=== PATIENT | female | born 1990 | race Caucasian/White ===

== ENCOUNTER 2020-02-04 15:15 | Outpatient (CLI) | payer BC, SELFPAY ==
[2020-02-04 15:43] VITALS: BMI 37.8
[2020-02-04] MEDS: Lactated Ringers 1,000 ML 125 ML IV (16:27)
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
== END 2020-02-04 19:20 | disposition home or self-care (01) ==
PROVIDERS: PCP Family Medicine; Visit Provider Advanced Practice Midwife
DX: O36.8190 Decreased fetal movements, unspecified trimester, not applicable or unspecified (principal); Z3A.36 36 weeks gestation of pregnancy; V89.2XXA Person injured in unspecified motor-vehicle accident, traffic, initial encounter
CPT/HCPCS: 96360; 96361; 59025; 59050; 99218; G0378

== ENCOUNTER 2020-02-12 13:20 | Inpatient (IN) | payer BC, SELFPAY ==
[2020-02-12] VITALS (20 sets, daily range): BP systolic 130–165; BP diastolic 63–97; PULSE 85–122; TEMP 36.2–36.7; O2SAT 93–100; BMI 37.3
--- NOTE | 2020-02-12 14:13 | NURSING ---
Avoids gluten and pork
[2020-02-12] MEDS: 0.9% Saline Lock 10 ML Syringe IV (14:27)
[2020-02-12 14:37] LABS: Absolute Neutrophil Count 7.3 X10^3/uL (2.0-7.7); Basophil# 0.02 X10^3/uL; Basophil% 0.2 % (0-1); Eosinophil# 0.03 X10^3/uL; Eosinophils% 0.3 % (0-5); Hematocrit 33.2 % (37-47); Hemoglobin 11.2 g/dL (12.0-15.0); Lymphocyte % 18.6 % (19-41); Mean Corp Hgb Conc 33.7 g/dL (32-36); Mean Corpuscular Hgb 30.3 pg (27.0-32.0); Mean Corpuscular Volume 89.7 fL (81-99); Mean Platelet Vol. 10.4 fl (6.2-12.0); Monocyte# 0.45 X10^3/uL; Monocyte% 4.6 % (0-10); NRBC Flagged by Analyzer 0.2 % (0-5); Neutrophil % 75.5 % (47-70); Platelet Count 259 K/mm3 (150-450); RBC Distribution Width CV 19.5 % (11.6-14.6); RBC Distribution Width SD 61.1 fl (35.1-43.9); White Blood Count 9.7 K/mm3 (4.4-11.0)
[2020-02-12 15:12] LABS: ALB/GLOB Ratio 0.6 RATIO (0.9-2.4); AST(SGOT) 62 U/L (15-37); Alanine Aminotransfer ALT/SGPT 34 U/L (13-56); Albumin, Serum 2.5 g/dL (3.2-5.0); Alkaline Phosphatase 156 U/L (45-117); Anion Gap 15 (5-15); BUN 5 mg/dL (7-18); BUN/Creat Ratio 7.1 RATIO (10-20); Calcium,Total 9.8 mg/dL (8.5-10.1); Chloride 107 mmol/L (98-107); Creatinine, Serum 0.71 mg/dL (0.55-1.02); EST Glomerular Filtration Rate 102 mL/min (>60); Est Glom Filt Rate - Afr Amer 124 mL/min (>60); Estimated Creatinine Clearance 99.14 ml/min; Glucose 122 mg/dL (74-106); Potassium 3.8 mmol/L (3.5-5.1); Protein, Total 6.5 g/dL (6.4-8.2); Sodium Level 138 mmol/L (136-145); Uric Acid 6.8 mg/dL (2.6-6.0)
[2020-02-12 15:24] LABS: Protein:Creat Ratio 738 mg/g CRE (0-200)
[2020-02-12] MEDS: miSOPROStol 25 MCG TABLET PO ×2 (15:46→20:03)
--- NOTE | 2020-02-12 16:00 | PCM.HP.OB ---
- Problem List (1) Preeclampsia Status: Acute (2) Encounter for induction of labor Status: Acute (3) Obesity affecting Status: Acute (4) Tobacco use during Status: Acute (5) Anemia affecting Status: Acute (6) Depression with anxiety Status: Acute History Date of Admission: 02/12/20 Final KIMBERLI: 02/29/20 Final KIMBERLI Source: [place] <20 weeks Gestational age: 37 Weeks and 5 Days History of this : This is a 29 year-old, G [1], P [0], at 37 weeks 4 days gestational age by ultrasound. Presented to office visit with contractions. Blood pressure elevated to 142/82 and asymptomatic. Denied any headache, scotoma, RUQ abdominal pain or other concerns. Asymptomatic and reflexes normal with no clonus. Decision to admit for induction of labor for gestational HTN rule out preeclampsia. course complicated by obesity, tobacco use, anemia and getting iron infusions. Medical History: Medical History (Last Updated 02/13/20 @ 08:53 by Lacie Aleman CNM) Decreased movement (Acute) O36.8190 36 weeks gestation of (Acute) Z3A.36 Allergies shalonda Allergy (Verified 02/12/20 13:36) Anaphylaxis gluten Adverse Reaction (Verified 02/12/20 13:36) Diarrhea lactose Adverse Reaction (Verified 02/12/20 13:36) Diarrhea Home Medications: Home Medications Folic Acid 0.8 mg PO DAILY 02/04/20 Prenatabs FA 1 tab PO DAILY 02/04/20 Sertraline HCl [Zoloft] 100 mg PO DAILY 02/04/20 Smoking Status: Light Smoker (<10/day) Alcohol: None Substance Use Type: Sleep Aides Number of Fetus(es): 1 NST - FHR Rate Baby A Baseline: 145 Variability:: Moderate Accelerations:: 15 x 15 Decelerations:: None FHR Category:: Category I History Past Pregnancies: Past Pregnancies Delivery Date Name GA/ Weeks Outcome Route Wt Sex Labor Length Anesthesia Delivery Location Provider FOB Labs: Mom's Problem List Problem Status Onset Code Preeclampsia Acute O14.90 Encounter for induction of labor Acute Z34.90 Obesity affecting Acute O99.210 Tobacco use during Acute O99.330 Anemia affecting Acute O99.019 Depression with anxiety Acute F41.8 Gestational hypertension Acute O13.9 37 weeks gestation of Acute Z3A.37 Mom's Labs & Results 02/12/20 02/12/20 02/12/20 14:20 14:20 14:20 WBC 9.7 RBC 3.70 L Hgb 11.2 L Hct 33.2 L MCV 89.7 MCH 30.3 MCHC 33.7 RDW Std Deviation 61.1 H RDW Coeff of Cora 19.5 H Plt Count 259 MPV 10.4 Immature Gran % (Auto) 0.800 Neut % (Auto) 75.5 H Lymph % (Auto) 18.6 L Dunn % (Auto) 4.6 Eos % (Auto) 0.3 Baso % (Auto) 0.2 Absolute Neuts (auto) 7.3 Absolute Lymphs (auto) 1.80 Nucleated RBC % 0.2 Sodium 138 Potassium 3.8 Chloride 107 Carbon Dioxide 16.0 L Anion Gap 15 BUN 5 L Creatinine 0.71 Estim Creat Clear Calc 99.14 Est GFR (MDRD) Af Amer 124 Est GFR (MDRD) Non-Af 102 BUN/Creatinine Ratio 7.1 L Glucose 122 H Uric Acid 6.8 H Calcium 9.8 Total Bilirubin 0.40 AST 62 H ALT 34 Alkaline Phosphatase 156 H Total Protein 6.5 Albumin 2.5 L Globulin 4.0 Albumin/Globulin Ratio 0.6 L U Random Total Protein Urine Creatinine Protein/Creatinin Ratio Blood Type A POSITIVE Antibody Screen NEGATIVE 02/12/20 02/13/20 02/13/20 14:50 05:30 05:30 WBC 8.6 RBC 3.48 L Hgb 11.2 L Hct 31.1 L MCV 89.4 MCH 32.2 H MCHC 36.0 D RDW Std Deviation 63.8 H RDW Coeff of Cora 19.9 H Plt Count 236 MPV 10.2 Immature Gran % (Auto) 0.500 Neut % (Auto) 66.1 Lymph % (Auto) 26.2 Dunn % (Auto) 6.2 Eos % (Auto) 0.9 Baso % (Auto) 0.1 Absolute Neuts (auto) 5.7 Absolute Lymphs (auto) 2.24 Nucleated RBC % 0 Sodium 135 L Potassium 3.5 Chloride 104 Carbon Dioxide 15.0 L Anion Gap 16 H BUN 7 Creatinine 0.54 L Estim Creat Clear Calc 130.35 Est GFR (MDRD) Af Amer 171 Est GFR (MDRD) Non-Af 141 BUN/Creatinine Ratio 13.1 Glucose 101 Uric Acid Calcium 8.4 L Total Bilirubin 0.30 AST 73 H ALT 25 Alkaline Phosphatase 144 H Total Protein 6.2 L Albumin 2.2 L Globulin 4.0 Albumin/Globulin Ratio 0.6 L U Random Total Protein 68.0 H Urine Creatinine 92.20 Protein/Creatinin Ratio 738 H Blood Type Antibody Screen Course Did the patient receive Yes care? Labs Blood Type: A RH: POSITIVE RPR/VDRL/Syphilis Nonreactive Rubella status Immune HbSAg Negative Date Done: 07/15/19 Chlamydia Negative Gonorrhea Negative HIV/AIDS Non-Reactive Group B Strep: Negative Current Obstetrical History Gestational Diabetes No Incompetent Cervix No Infertility No IUGR No Macrosomia No Hypertension/Pre-eclampsia Yes Placenta Previa/Abruption No PTL/PROM No Uterine anomaly No Oligohydramnios No Polyhydramnios No Multiple gestation No Past Medical History Asthma No Diabetes No Hypertension No Heart disease No Mitral valve prolapse No Neurologic/Seizure disorder/ No Migraines Kidney disease No Liver disease No Varicosities No Clotting disorders/Hx of DVT No Thyroid Dysfunction No Other medical diseases No Psychiatric disorders Yes: anxiety Major trauma No Abnormal PAP smear Yes: hx HPV Sleep apnea No Mammogram in the last 2 years No Medications Taken During Reason for taking medication [ Biweekly x 10 doses - currently received approx. 6 Iv iron infusions] doses Social History Marital Status: SINGLE Alleged father Jese Banerjee Hx Smoking Yes Smoking Status Light Smoker (<10/day) Substance Use Type Sleep Aides What date/time did you last melatonin prn for sleep - couple days ago use any of the above? Expected Delivery Method: Spontaneous Vaginal Review of Systems Constitutional: Denies: Chills, Fever, Weight Change Eyes: Denies: Blurred vision, Double vision, Vision Change HEENT: Denies: Head Aches, Sinus Congestion, Sinus Drainage Cardiovascular: Denies: Chest Pain, Palpitations Respiratory: Denies: Cough, Shortness of breath at rest, Sputum production Gastrointestinal: Denies: Abdominal Pain, Nausea, Vomiting Genitourinary: Denies: Dysuria Musculoskeletal: Denies: Joint Pain, Joint Tenderness Skin: Denies: Rash, Wounds Neurological: Denies: Numbness, Tingling, Focal weakness Psychiatric: Denies: Anxiety, Depression, Homicidal Ideations, Suicidal Ideations Hematologic/ Lymphatic: Denies: Easy Bruising, Easy Bleeding Physical Exam Vitals: Vital Signs Temp Pulse BP Pulse Ox 97.0 F L 98 133/78 H 97 02/13/20 09:44 02/13/20 11:01 02/13/20 11:01 02/13/20 09:44 General: Alert, Oriented x3, Cooperative HEENT: Atraumatic, Normocephalic Cardiovascular: Regular rate, Regular Rhythm, No murmurs Lungs: Clear to auscultation, Normal air movement, No rhonchi, No wheeze Abdomen: Bowel Sounds Present, Non Tender - No RUQ tenderness, Gravid Extremities:: No edema Neurological: Deep Tendon Reflexes 2+/4 and Symmetrical. Negative for: Clonus VEGETABLE II FARMWORKER: Normal external genitalia Estimated gestational size: Appropriate for gestational size - 02/03/20 Presentation: Cephalic Cervix Dilation (cm): 0 - Very posterior Station: -3 Effacement (%): 40 Assessment/Plan All Active Problems (Last Updated 02/13/20 @ 08:53 by Lacie Aleman CNM) Preeclampsia (Acute) Encounter for induction of labor (Acute) Obesity affecting (Acute) Tobacco use during (Acute) Anemia affecting (Acute) Depression with anxiety (Acute) Gestational hypertension (Acute) 37 weeks gestation of (Acute) Decreased movement (Acute) 36 weeks gestation of (Acute) This is a 29 year-old, G [1], P [0], at 37 weeks 4 days gestational age. A:Induction of labor for Preeclampsia Category 1 FHT P: 1) Admit to labor and delivery. Routine labs, IV saline lock 2) Cytotec 25mcg PO q4hr. Cervix closed and unable to insert bettencourt catheter. Will attempted once cervical os open. 3) CMP, CBC, uric acid and urine P/C ratio ordered. AST elevated and P/C ratio 738. Diagnosis of preeclampsia without severe features. BP range 140s/80s. No severe range pressures and asymptomatic. If severe range BP will initiate HTN protocol and magnesium. 4) [facility], notified of patient status, diagnosis and plan.
[2020-02-12] MEDS: Acetaminophen 325 MG Tablet PO (23:02)
[2020-02-13] VITALS (39 sets, daily range): BP systolic 120–171; BP diastolic 60–99; PULSE 76–139; TEMP 36.1–36.9; O2SAT 95–100
[2020-02-13] MEDS: miSOPROStol 25 MCG TABLET PO ×2 (00:12→04:22)
[2020-02-13] MEDS: Mag Hydrox/Al Hydrox/Simeth 30 ML UDC PO ×3 (01:20→20:45)
[2020-02-13] MEDS: 0.9% Saline Lock 10 ML Syringe IV (04:21)
--- NOTE | 2020-02-13 05:11 | NURSING ---
this RN agrees with student nurse [facility] charting from this shift.
[2020-02-13 05:38] LABS: Absolute Lymphocyte Count 2.24 X10^3/uL (0.83-4.51); Absolute Neutrophil Count 5.7 X10^3/uL (2.0-7.7); Basophil# 0.01 X10^3/uL; Basophil% 0.1 % (0-1); Eosinophil# 0.08 X10^3/uL; Eosinophils% 0.9 % (0-5); Hematocrit 31.1 % (37-47); Hemoglobin 11.2 g/dL (12.0-15.0); Lymphocyte # 2.24 X10^3/ul (4.0); Lymphocyte % 26.2 % (19-41); Mean Corpuscular Hgb 32.2 pg (27.0-32.0); Mean Corpuscular Volume 89.4 fL (81-99); Mean Platelet Vol. 10.2 fl (6.2-12.0); Monocyte# 0.53 X10^3/uL; Monocyte% 6.2 % (0-10); NRBC Flagged by Analyzer 0 % (0-5); Neutrophil # 5.65 X10^3/uL (2.7-7.7); Neutrophil % 66.1 % (47-70); Platelet Count 236 K/mm3 (150-450); RBC Distribution Width CV 19.9 % (11.6-14.6); RBC Distribution Width SD 63.8 fl (35.1-43.9); Red Blood Count 3.48 M/mm3 (4.2-5.4); White Blood Count 8.6 K/mm3 (4.4-11.0)
[2020-02-13 06:44] LABS: ALB/GLOB Ratio 0.6 RATIO (0.9-2.4); AST(SGOT) 73 U/L (15-37); Alanine Aminotransfer ALT/SGPT 25 U/L (13-56); Albumin, Serum 2.2 g/dL (3.2-5.0); Alkaline Phosphatase 144 U/L (45-117); Anion Gap 16 (5-15); BUN 7 mg/dL (7-18); BUN/Creat Ratio 13.1 RATIO (10-20); Calcium,Total 8.4 mg/dL (8.5-10.1); Chloride 104 mmol/L (98-107); Creatinine, Serum 0.54 mg/dL (0.55-1.02); EST Glomerular Filtration Rate 141 mL/min (>60); Est Glom Filt Rate - Afr Amer 171 mL/min (>60); Estimated Creatinine Clearance 130.35 ml/min; Glucose 101 mg/dL (74-106); Potassium 3.5 mmol/L (3.5-5.1); Protein, Total 6.2 g/dL (6.4-8.2); Sodium Level 135 mmol/L (136-145)
--- NOTE | 2020-02-13 08:44 | PN.OBGYN_ITS ---
Patient Problems: Active and Suspected Problems 37 weeks gestation of (Acute) Gestational hypertension (Acute) Subjective: Patient seen at bedside. Denies any headaches, vision changes or RUQ pain. Stated slept through night. Denies feeling any cramping or contractions. Positive movement. - Physical Exam Vitals/I&O's: Vital Signs Temp Pulse BP Pulse Ox 97.4 F L 86 143/83 H 98 02/13/20 07:31 02/13/20 07:31 02/13/20 07:31 02/13/20 07:31 Weight: 217 lb 6.012 oz Body Mass Index (BMI) 37.3 Intake and Output for Last 24 Hours 02/11/20 02/12/20 02/13/20 23:59 23:59 23:59 Intake Total 400 / 400 100 / 100 Output Total 350 / 350 Balance 400 / 400 -250 / -250 General: Alert, Oriented x3 HEENT: Atraumatic Oral: Moist Mucosa Lungs: Clear to auscultation, Normal air movement Cardiovascular: Regular rate Abdomen: Soft, Non Tender, Gravid Extremities: Capillary Refill Less than 3 Seconds Skin: No rashes Neurological: Cranial nerves II-XII grossly intact Psych/Mental Status: Normal Affect, Appropriate Laboratory Results 02/12/20 14:20: WBC 9.7, RBC 3.70 L, Hgb 11.2 L, Hct 33.2 L, MCV 89.7, MCH 30.3, MCHC 33.7, RDW Std Deviation 61.1 H, RDW Coeff of Cora 19.5 H, Plt Count 259, MPV 10.4, Immature Gran % (Auto) 0.800, Neut % (Auto) 75.5 H, Lymph % (Auto) 18.6 L, [place] % (Auto) 4.6, Eos % (Auto) 0.3, Baso % (Auto) 0.2, Absolute Neuts (auto) 7.3, Absolute Lymphs (auto) 1.80, Nucleated RBC % 0.2 02/12/20 14:20: Blood Type A POSITIVE, Antibody Screen NEGATIVE 02/12/20 14:20: Sodium 138, Potassium 3.8, Chloride 107, Carbon Dioxide 16.0 L, Anion Gap 15, BUN 5 L, Creatinine 0.71, Estim Creat Clear Calc 99.14, Est GFR (MDRD) Af Amer 124, Est GFR (MDRD) Non-Af 102, BUN/Creatinine Ratio 7.1 L, Glucose 122 H, Uric Acid 6.8 H, Calcium 9.8, Total Bilirubin 0.40, AST 62 H, ALT 34, Alkaline Phosphatase 156 H, Total Protein 6.5, Albumin 2.5 L, Globulin 4.0, Albumin/Globulin Ratio 0.6 L 02/12/20 14:50: U Random Total Protein 68.0 H, Urine Creatinine 92.20, Prot ein/Creatinin Ratio 738 H 02/13/20 05:30: WBC 8.6, RBC 3.48 L, Hgb 11.2 L, Hct 31.1 L, MCV 89.4, MCH 32.2 H, MCHC 36.0 D, RDW Std Deviation 63.8 H, RDW Coeff of Cora 19.9 H, Plt Count 236, MPV 10.2, Immature Gran % (Auto) 0.500, Neut % (Auto) 66.1, Lymph % (Auto) 26.2, [place] % (Auto) 6.2, Eos % (Auto) 0.9, Baso % (Auto) 0.1, Absolute Neuts (auto) 5.7, Absolute Lymphs (auto) 2.24, Nucleated RBC % 0 02/13/20 05:30: Sodium 135 L, Potassium 3.5, Chloride 104, Carbon Dioxide 15.0 L , Anion Gap 16 H, BUN 7, Creatinine 0.54 L, Estim Creat Clear Calc 130.35, Est GFR (MDRD) Af Amer 171, Est GFR (MDRD) Non-Af 141, BUN/Creatinine Ratio 13.1, Glucose 101, Calcium 8.4 L, Total Bilirubin 0.30, AST 73 H, ALT 25, Alkaline Phosphatase 144 H, Total Protein 6.2 L, Albumin 2.2 L, Globulin 4.0, Albumin/Globulin Ratio 0.6 L Current Medications Acetaminophen (Tylenol) 325 - 650 mg PO Q4H PRN PRN PRN Reason: Pain Score 1-3/10 Last Admin: 02/12/20 23:02 Dose: 650 mg Documented by: Al Hydroxide/Mg Hydroxide (Mylanta Ii) 15 - 30 ml PO Q4H PRN PRN PRN Reason: INDIGESTION Last Admin: 02/13/20 01:20 Dose: 30 ml Documented by: Citric Acid/Sodium Citrate (Bicitra) 30 ml PO X1 PRN PRN Reason: Section Fentanyl Citrate (Sublimaze (100mcg Ampule)) 25 - 50 mcg IV Q2H PRN PRN PRN Reason: Pain Score 4-10/10 Lactated Ringer's () 500 mls @ 999 mls/hr IV .Q31M PRN PRN Reason: Epidural Lactated Ringer's () 500 mls @ 999 mls/hr IV .Q31M PRN PRN Reason: Corrective Measures Lactated Ringer's () 1,000 mls @ 50 mls/hr IV .Q20H YONI Last Admin: 02/12/20 21:37 Dose: Not Given Documented by: Oxytocin/Sodium Chloride () 30 units in 500 mls @ 2 mls/hr IV .Q250H YONI Ondansetron HCl (Zofran) 4 mg IV Q4H PRN PRN PRN Reason: NAUSEA Prochlorperazine Edisylate (Compazine Iv) 10 mg IV Q6H PRN PRN PRN Reason: NAUSEA Sodium Chloride () 10 - 40 ml IV X1 PRN PRN Reason: SALINE FLUSH Last Admin: 02/13/20 04:21 Dose: 10 ml Documented by: Medical Necessity - Tobacco Use Smoking Status: Light Smoker (<10/day) Assessment/Plan All Active Problems Decreased movement (Acute) 36 weeks gestation of (Acute) 37 weeks gestation of (Acute) Gestational hypertension (Acute) A/P 37.4 weeks gestation for induction of labor for GHTN PIH labs within normal range BP's elevated but no severe ranges Cytotec 25mcg PO every 4 hours- has received 4 doses CE- 0/50/-3 Continue with Cytotec PO and will reevaluate to possibly place bettencourt bulb Dr. Manjarrez notified and is collaborating physician
[2020-02-13] MEDS: miSOPROStol 50 MCG TABLET PO (09:04)
[2020-02-13] MEDS: 0.9% Normal Saline Single 100 ML IV.SOLN. IY (10:25)
[2020-02-13] MEDS: Acetaminophen 325 MG Tablet PO (12:54)
[2020-02-13] MEDS: Lactated Ringers 1,000 ML 50 ML IV (15:08)
[2020-02-13] MEDS: Oxytocin 30 units/NS 500 ml 30 UNITS/500 ML IV.SOLN IV (15:11)
[2020-02-13] MEDS: Lactated Ringers 500 ML 999 ML IV (16:07)
[2020-02-13] MEDS: fentaNYL-bupivacaine (epidural) 100 ML BAG EPIDURAL ×2 (17:08→21:06)
[2020-02-13 18:43] LABS: Hematocrit 32.3 % (37-47); Hemoglobin 11.4 g/dL (12.0-15.0); Mean Corp Hgb Conc 35.3 g/dL (32-36); Mean Corpuscular Hgb 31.8 pg (27.0-32.0); Mean Platelet Vol. 11.1 fl (6.2-12.0); Platelet Count 269 K/mm3 (150-450); RBC Distribution Width CV 19.7 % (11.6-14.6); RBC Distribution Width SD 63.3 fl (35.1-43.9); Red Blood Count 3.59 M/mm3 (4.2-5.4); White Blood Count 10.3 K/mm3 (4.4-11.0)
[2020-02-13 19:44] LABS: Albumin, Serum 2.3 g/dL (3.2-5.0); Creatinine, Serum 0.57 mg/dL (0.55-1.02); EST Glomerular Filtration Rate 131 mL/min (>60); Est Glom Filt Rate - Afr Amer 159 mL/min (>60); Estimated Creatinine Clearance 123.49 ml/min; Protein, Total 6.3 g/dL (6.4-8.2)
[2020-02-13 19:45] LABS: AST(SGOT) 55 U/L (15-37); Alanine Aminotransfer ALT/SGPT 26 U/L (13-56); Alkaline Phosphatase 148 U/L (45-117); Bilirubin, Direct < 0.05 mg/dL (0.00-0.30)
--- NOTE | 2020-02-13 20:09 | PCM.PN.OB ---
Patient Problems: Active and Suspected Problems (Last Updated 02/13/20 @ 08:53 by Lacie Aleman CNM) Preeclampsia (Acute) Encounter for induction of labor (Acute) Obesity affecting (Acute) Tobacco use during (Acute) Anemia affecting (Acute) Depression with anxiety (Acute) Gestational hypertension (Acute) 37 weeks gestation of (Acute) Subjective: Patient resting comfortably. Had epidural placed and denies any pain or feeling contractions. Denies any headaches, vision changes or RUQ pain Objective: [place] bulb out around 1330 CE- 4/50/-3 unchanged from 1330 - Physical Exam Vitals/I&O's: Vital Signs Temp Pulse BP Pulse Ox 97.5 F L 107 H 143/80 H 96 02/13/20 19:55 02/13/20 19:57 02/13/20 19:57 02/13/20 19:55 Weight: 217 lb 6.012 oz Body Mass Index (BMI) 37.3 Intake and Output for Last 24 Hours 02/11/20 02/12/20 02/13/20 23:59 23:59 23:59 Intake Total 400 / 400 679.40 / 679.40 Output Total 350 / 350 Balance 400 / 400 329.40 / 329.40 General: Alert, Oriented x3, Cooperative Lungs: Normal air movement Cardiovascular: Regular rate Abdomen: Soft, Non Tender, Gravid Skin: No rashes Lymphatic: No Cervical, Supraclavicular, or Inguinal Adenopathy Neurological: Cranial nerves II-XII grossly intact Psych/Mental Status: Normal Affect Laboratory Results 02/13/20 05:30: WBC 8.6, RBC 3.48 L, Hgb 11.2 L, Hct 31.1 L, MCV 89.4, MCH 32.2 H, MCHC 36.0 D, RDW Std Deviation 63.8 H, RDW Coeff of Cora 19.9 H, Plt Count 236, MPV 10.2, Immature Gran % (Auto) 0.500, Neut % (Auto) 66.1, Lymph % (Auto) 26.2, [place] % (Auto) 6.2, Eos % (Auto) 0.9, Baso % (Auto) 0.1, Absolute Neuts (auto) 5.7, Absolute Lymphs (auto) 2.24, Nucleated RBC % 0 02/13/20 05:30: Sodium 135 L, Potassium 3.5, Chloride 104, Carbon Dioxide 15.0 L, Anion Gap 16 H, BUN 7, Creatinine 0.54 L, Estim Creat Clear Calc 130.35, Est GFR (MDRD) Af Amer 171, Est GFR (MDRD) Non-Af 141, BUN/Creatinine Ratio 13.1, Glucose 101, Calcium 8.4 L, Total Bilirubin 0.30, AST 73 H, ALT 25, Alkaline Phosphatase 144 H, Total Protein 6.2 L, Albumin 2.2 L, Globulin 4.0, Albumin/Globulin Ratio 0.6 L 02/13/20 18:10: WBC 10.3, RBC 3.59 L, Hgb 11.4 L, Hct 32.3 L, MCV 90.0, MCH 31.8, MCHC 35.3, RDW Std Deviation 63.3 H, RDW Coeff of Cora 19.7 H, Plt Count 269, MPV 11.1 02/13/20 18:10: Creatinine 0.57, Estim Creat Clear Calc 123.49, Est GFR (MDRD) Af Amer 159, Est GFR (MDRD) Non-Af 131, Total Bilirubin 0.30, Direct Bilirubin < 0.05, AST 55 H, ALT 26, Alkaline Phosphatase 148 H, Total Protein 6.3 L, Albumin 2.3 L, Globulin 4.0 Current Medications Acetaminophen (Tylenol) 325 - 650 mg PO Q4H PRN PRN PRN Reason: Pain Score 1-3/10 Last Admin: 02/13/20 12:54 Dose: 650 mg Documented by: Al Hydroxide/Mg Hydroxide (Mylanta Ii) 15 - 30 ml PO Q4H PRN PRN PRN Reason: INDIGESTION Last Admin: 02/13/20 15:20 Dose: 30 ml Documented by: Citric Acid/Sodium Citrate (Bicitra) 30 ml PO X1 PRN PRN Reason: Section Ephedrine Sulfate () 10 mg IV Q10M PRN PRN Reason: hypotension Ephedrine Sulfate () 10 mg IM Q30M PRN PRN Reason: hypotension Fentanyl Citrate (Sublimaze (100mcg Ampule)) 25 - 50 mcg IV Q2H PRN PRN PRN Reason: Pain Score 4-10/10 Fentanyl/Bupivacaine/Sodium Chlor () 0 ml EPIDURAL UD YONI; Protocol Last Admin: 02/13/20 17:08 Dose: 100 ml Documented by: Lactated Ringer's () 500 mls @ 999 mls/hr IV .Q31M PRN PRN Reason: Epidural Last Infusion: 02/13/20 16:40 Dose: Infused Documented by: Lactated Ringer's () 500 mls @ 999 mls/hr IV .Q31M PRN PRN Reason: Corrective Measures Lactated Ringer's () 1,000 mls @ 50 mls/hr IV .Q20H YONI Last Infusion: 02/13/20 16:49 Dose: 200 mls/hr Documented by: Oxytocin/Sodium Chloride () 30 units in 500 mls @ 2 mls/hr IV .Q250H YONI Last Infusion: 02/13/20 19:27 Dose: 10 mls/hr Documented by: Naloxone HCl 4 mg/ Dextrose 504 mls @ 0 mls/hr IV .Q0M PRN; Protocol PRN Reason: To maintain Resp. rate >10 Nalbuphine HCl (Nubain) 5 mg IV Q3H PRN PRN PRN Reason: ITCHING Naloxone HCl (Narcan) 0.02 mg IV Q1M PRN PRN Reason: RR< 10 AND PT UNRESPONSIVE Ondansetron HCl (Zofran) 4 mg IV Q4H PRN PRN PRN Reason: NAUSEA Prochlorperazine Edisylate (Compazine Iv) 10 mg IV Q6H PRN PRN PRN Reason: NAUSEA Sertraline HCl (Zoloft) 100 mg PO DAILY@2000 YONI Sodium Chloride () 10 - 40 ml IV X1 PRN PRN Reason: SALINE FLUSH Last Admin: 02/13/20 04:21 Dose: 10 ml Documented by: Medical Necessity - Tobacco Use Smoking Status: Light Smoker (<10/day) Assessment/Plan All Active Problems (Last Updated 02/13/20 @ 08:53 by Lacie Aleman CNM) Preeclampsia (Acute) Encounter for induction of labor (Acute) Obesity affecting (Acute) Tobacco use during (Acute) Anemia affecting (Acute) Depression with anxiety (Acute) Gestational hypertension (Acute) 37 weeks gestation of (Acute) Decreased movement (Acute) 36 weeks gestation of (Acute) A/P at 37.4 weeks gestation here for induction of labor for preeclampsia Continue to titrate Pitocin IV per protocol Routine care Hypertension protocol if warranted Dr. Manjarrez updated and agrees with plan of care
[2020-02-13] MEDS: Sertraline 100 MG Tablet PO (20:11)
[2020-02-13] MEDS: Lactated Ringers 1,000 ML 200 ML IV (21:01)
[2020-02-14] VITALS (32 sets, daily range): BP systolic 125–176; BP diastolic 59–99; PULSE 84–127; TEMP 36.4–37.9; O2SAT 94–98
--- NOTE | 2020-02-14 | PLAC_PTH ---
PATIENT: NAKUL HOUGH LOC: WP U#:[id number] AGE/SX: 29/F ROOM: WP010 RE02/12/[address]: Dr. Rita Rhoades, MDDOB: 1990 BED: 1 DIS: 02/19/2020 SPEC #: [id number] RECD: 02/15/20 16:31 STATUS: AUGUSTO KELLY #: [id number] EDWIN: 02/14/20 00:[address]: Rita Rhoades DEPT: SURGICAL PATHOLOGY RECD BY: Tarun Richmond ENTERED: 02/17/20 08:19 SP TYPE: PLACENTA OTHR DR: Dr. Ann Sherman, DO Tissues: Placenta, NOS Procedures: Surgery Specimen Level V HEADER OPERATION: Primary section PRE-OP DIAGNOSIS: Preeclampsia TISSUE SUBMITTED: Placenta MICROSCOPIC DIAGNOSIS Placenta: Placental disc - third trimester placenta (730 gm). -?Focal central area of placental depression and blood clot, suspicious for placental abruption. -?Focal acute vasculitis of subamniotic blood vessels. Membranes - moderate acute chorioamnionitis. Umbilical cord - three blood vessels and moderate acute funisitis. SJ:kindra 02/19/20 MICROSCOPIC DESCRIPTION Slides are reviewed. GROSS DESCRIPTION SPECIMEN: PLACENTA / CLINICAL INFORMATION: A. Weight: 3.575 kg B. Gestational Age: 38 weeks C. Sex: Male PLACENTAL WEIGHT (POST FIXATION): 730 gm PLACENTAL DIMENSIONS: 21 x 16 x 4 cm PLACENTAL SHAPE: Usual ovoid PLACENTAL WEIGHT FOR GESTATIONAL AGE: >99th percentile MEMBRANES - Present A. Insertion: Marginal B. Site of rupture from edge: The membranes are fragmented and distance of rupture cannot be assessed. C. Color of membrane: Lackey-zepeda D. Abnormalities: None UMBILICAL CORD - Present A. Color: Lackey-zepeda B. Insertion: Central C. Length: 35 cm D. Diameter: 1.4 cm E. Number of vessels: Three F. Abnormalities: None PLACENTAL DISC - Present. A. Color of surface: Lackey-zepeda B. surface abnormalities: None C. Maternal cotyledons: The maternal surface shows a focal area of central depression covered with blood clot suspicious for placental abruption. D. Attached retro placental clot: Present, small amount E. Cut surface: Dark red and spongy F. Lesions: None G. Separate clot: A small amount of detached blood clots are noted weighing 10 gm and measuring 5 x 3 x 2 cm. SECTIONS SUBMITTED: 1. Membrane roll 2. Cord, maternal end 3. Cord, end 4. Placental disc, and maternal surfaces, central area of depression with blood clots. 5. Placental disc, and maternal surfaces 6. Placental disc, and maternal surfaces SJ:kindra 02/18/20 TC:2 CPT: 74779
[2020-02-14] MEDS: fentaNYL-bupivacaine (epidural) 100 ML BAG EPIDURAL ×5 (01:57→22:06)
[2020-02-14] MEDS: Lactated Ringers 1,000 ML 200 ML IV ×5 (02:03→23:28)
[2020-02-14 06:18] LABS: Hematocrit 30.8 % (37-47); Hemoglobin 10.2 g/dL (12.0-15.0); Mean Corp Hgb Conc 33.1 g/dL (32-36); Mean Corpuscular Hgb 29.7 pg (27.0-32.0); Mean Corpuscular Volume 89.8 fL (81-99); Mean Platelet Vol. 10.5 fl (6.2-12.0); Platelet Count 225 K/mm3 (150-450); RBC Distribution Width CV 19.6 % (11.6-14.6); RBC Distribution Width SD 63.8 fl (35.1-43.9); Red Blood Count 3.43 M/mm3 (4.2-5.4); White Blood Count 10.7 K/mm3 (4.4-11.0)
[2020-02-14 06:56] LABS: AST(SGOT) 65 U/L (15-37); Alanine Aminotransfer ALT/SGPT 28 U/L (13-56); Albumin, Serum 2.1 g/dL (3.2-5.0); Alkaline Phosphatase 136 U/L (45-117); Bilirubin, Direct < 0.05 mg/dL (0.00-0.30); Creatinine, Serum 0.56 mg/dL (0.55-1.02); EST Glomerular Filtration Rate 135 mL/min (>60); Est Glom Filt Rate - Afr Amer 163 mL/min (>60); Estimated Creatinine Clearance 125.69 ml/min; Globulin 3.7 g/dL (2.2-4.2); Protein, Total 5.8 g/dL (6.4-8.2)
[2020-02-14] MEDS: Mag Hydrox/Al Hydrox/Simeth 30 ML UDC PO (07:44)
--- NOTE | 2020-02-14 07:44 | PCM.PN.BLA ---
Progress Note At bedside to examine pt. Cvx 4-5/70/-2, head palpated. Clear fluid present on exam. IUPC placed. Pit at 16, continue to titrate pit prn. STROKE Vital Signs/Narrative: Vital Signs Temp Pulse BP Pulse Ox 02/14/20 07:41 99 157/94 H 02/14/20 07:24 100 162/95 H 02/14/20 06:08 102 H 136/84 H 02/14/20 06:04 98.0 F 96 02/14/20 04:55 97.9 F 94 142/73 H 94 02/14/20 03:59 97.9 F 87 125/59 H 94
--- NOTE | 2020-02-14 08:32 | PCM.PN.BLA ---
Progress Note pt seen at bedside, resting comfortably - Epidural in place. Pitocin at 18mu. Continue to labor at this time. STROKE Vital Signs/Narrative: Vital Signs Temp Pulse BP Pulse Ox 02/14/20 07:41 99 157/94 H 02/14/20 07:24 97.7 F L 100 162/95 H 96 02/14/20 06:08 102 H 136/84 H 02/14/20 06:04 98.0 F 96 02/14/20 04:55 97.9 F 94 142/73 H 94
[2020-02-14] MEDS: Ondansetron 4 MG/2 ML Vial IV (16:03)
--- NOTE | 2020-02-14 17:05 | NURSING ---
This RN agrees with [employer] Judge's charting.
--- NOTE | 2020-02-14 18:46 | PCM.PN.BLA ---
Progress Note Patient was evaluated at bedside resting comfortably with epidural in place. Vaginal exam was performed she was still approximately 4 to 5 cm 80% and -2 station with caput appreciated. Discussed with the patient options for delivery. Discussed with the patient that she has been on Pitocin 28mu without adequate contractions- recommendation at this time is to give her Pitocin break allow her to eat and then restart the Pitocin in approximately 2 hours. Discussed with the patient that as long as she and fetus remain stable we will continue to allow labor if she desires. Patient understands that unless it is an emergency a will not be performed for 6-8 hours after eating. Patient was also given the opportunity to proceed with a primary section for failed induction of labor. After discussion with her and they opted to wait and continue to allow induction of labor with Pitocin. Patient was counseled on the risk and the benefits of both options. plan will be to restart pitocin in 2hours. Recheck exam as needed. if no Cervical change at 5:15am will proceed with Primary cs. STROKE Vital Signs/Narrative: Vital Signs Temp Pulse BP Pulse Ox 02/14/20 18:06 99.4 F H 112 H 142/79 H 96 02/14/20 16:58 99.5 F H 117 H 146/84 H 97 02/14/20 16:24 99.5 F H 02/14/20 16:07 97.8 F 114 H 134/88 H 98 02/14/20 14:58 97.8 F 127 H 144/83 H 98
[2020-02-14] MEDS: Sertraline 100 MG Tablet PO (21:03)
[2020-02-14] MEDS: Acetaminophen 500 MG Tablet 1000 MG PO (21:21)
--- NOTE | 2020-02-14 22:08 | PCM.PN.BLA ---
Progress Note Seen at bedside, resting comfortably. Patient reports feels better after eating and resting. Pitocin restarted. heart rate 160s to low 170s. Good accelerations no decelerations appreciated. Discussed with the patient that if tachycardia persists and there is no cervical change would want to proceed with a primary section. If the tracing is category 1 we will continue to increase Pitocin and recheck cervix when indicated if prior to 5 AM. If no cervical change at that time will proceed with a primary section. Patient is in agreement with the plan. She remains afebrile, highest temperature 100.2 ?F. Tylenol 1000 mg p.o. given. STROKE Vital Signs/Narrative: Vital Signs Temp Pulse BP Pulse Ox 02/14/20 21:05 122 H 155/91 H 02/14/20 21:03 100.2 F H 97 02/14/20 19:50 99.4 F H 127 H 134/77 H 97
[2020-02-14] MEDS: Oxytocin 30 units/NS 500 ml 30 UNITS/500 ML IV.SOLN 4 UNITS IV (23:28)
[2020-02-15] VITALS (30 sets, daily range): BP systolic 121–163; BP diastolic 67–109; PULSE 92–118; RESP 16–20; TEMP 36.1–37.7; O2SAT 94–99
--- NOTE | 2020-02-15 01:14 | NURSING ---
dr méndez verbal order. no need to draw q12 hr pre-e labs.
[2020-02-15] MEDS: fentaNYL-bupivacaine (epidural) 100 ML BAG EPIDURAL ×2 (02:34→07:41)
[2020-02-15] MEDS: Lactated Ringers 1,000 ML 200 ML IV (04:42)
--- NOTE | 2020-02-15 04:58 | NURSING ---
this RN not using any interventions (gait belt, assistance of 2, etc) for unsteady gait since pt has epidural and this RN providing total care one on one.
[2020-02-15] MEDS: Sodium Citrate/Citric Acid 30 ML UDC PO (10:06)
--- NOTE | 2020-02-15 10:09 | PN_ITS ---
Progress Note Patient seen at bedside. Resting comfortably. Patient has made slow progress after multiple doses of Cytotec and Pitocin. Vaginal exam performed by nursing staff and myself confirms that patient is approximately 8 cm /80%/-2 with caput. The vagina is very narrow and difficult to examine. I discussed with the patient that she is making cervical change and the option is to continue to labor at this time and if she gets to complete we will push however based on my assessment I would not recommend an operative delivery as I feel this baby estimated weight clinically is approximately 9 pounds with a narrow pelvis. Patient at this time does not wish to proceed with a vaginal delivery. Patient reports she would like to have a primary section at this time. Patient was counseled on the risks of section including but not limited to bleeding, infection, injury to pelvic structures. Discussed with the patient that due to significant caput may need assistance from pushing the head up from below during the delivery. We discussed that she is at slightly higher risk for extensions down the cervix with increased bleeding. Patient has been at [facility] for labor induction for preeclampsia since 02/12/2020 at it is now 02/15/2020 and the patient is wishing for an elective prim teresa section maternal exhaustion. STROKE Vital Signs/Narrative: Vital Signs Temp Pulse BP Pulse Ox 02/15/20 08:55 99.2 F H 97 141/81 H 98 02/15/20 07:52 99.6 F H 105 H 131/79 H 95 02/15/20 07:42 105 H 131/79 H
[2020-02-15] MEDS: Cefazolin 2 GM in 0.9% Normal Saline 100 ML IV (10:18)
[2020-02-15] MEDS: Carboprost Tromethamine 250 MCG/ML Ampul IM (10:43)
--- NOTE | 2020-02-15 11:05 | PCM.OPRPT ---
Delivery Classification: CHILO Final KIMBERLI: 02/29/20 Gestational age: 38 Weeks and 0 Days accounts receivable assistant: Bernard Plummer Type of Anesthesia:: Epidural Implants Used: none Date of Procedure: 02/15/20 - start time 1034 end time 1111 Pre-Operative Diagnosis: term gestation, Preeclampsia, Post-Operative Diagnosis: same, live male Indications: maternal exhaustion, Elective Primary cs Description of Procedure: After informed consent was obtained the patient was taken the operating room. It was an induction of labor for preeclampsia she was admitted on 02/12/2020 eventually progressed to 8 cm with significant At narrow pelvis. Patient elected for a primary section. Patient was counseled on all the risk benefits and alternatives. Patient declined further induction of labor. She was then placed in the supine position. She was prepped and draped in the normal sterile fashion. Anesthesia was found to be adequate. At this time a Pfannenstiel skin incision was made with a knife was carried down to the underlying layer of the fascia. The fascial incision was then extended laterally using curved Borja scissor. attention was then turned to the superior aspect of the fascial edge was grasped with 2 straight [place] clamps tented up and the rectus muscle dissected off sharply using curved Borja scissor. Attention was then turned to the inferior aspect where again Jeffrey clamps were placed in the rectus muscles were tented up and the fascia was dissected off sharply using the curved Borja scissor. Rectus muscles were then in the midline bluntly and peritoneum was entered bluntly. Gentle opposing traction was placed. At this time the vesicouterine peritoneum was identified. Scalpel was used to make a uterine incision in a low transverse fashion. The uterus was then entered bluntly gentle opposing traction was placed to extend this incision. 's head was brought to the uterine incision was delivered atraumatically. Cord was clamped and cut infant was handed to the waiting nursery team. The Placenta was removed from the uterus. The uterus was then removed from the abdominal cavity. The uterus was cleared of all clots and debris using a lap. Uterine atony appreciated- Hemabate given in lower extremity. Small extension down Right cervix apprecaited-clamped to control bleeding. At this time the uterine incision was reapproximated using #1 Vicryl in a running locked fashion. the Extension on right was repaired with #1 vicryl in a runnig locking fashion. Hemostasis was appreciated. Posterior cul-de-sac was then cleared of all clots and debris. Uterus was placed back in the abdominal cavity. Gutters were cleared of all clots and debris. Uterine incision was reevaluated and noted to be of excellent hemostasis. Terrance was placed. At this time the peritoneum and muscle were grasped with Kellys reapproximated using #2 Vicryl suture in a running fashion. Fascia was then reapproximated using #1 PDS in a running fashion. Subcu layer was reapproximated with #2 0 plain gut suture in an interrupted fashion. Subcu layer was closed using 4-0 Monocryl in a subcu fashion. Dry sterile dressing was applied. Instrument lap needle count correct ?2. Anticipated normal postoperative course. Amniotic Membrane Rupture Type: Spontaneous Amniotic Fluid Description: Clear Placenta Disposition: Routine to Lab Specimen(s) sent to pathology: placenta Drain: [place] to straight drain Cord Entanglement: None Cord Vessel Description: 3 Vessels Esitmated Blood Loss (ml): 900 Gender: Male (1 minute): 7 (5 minute): 9 Delayed cord clamping: Yes Antibiotic Given: Ancef 2 grams IV x1, Zithromax 500 mg/5 mL X1 Pt instructed on risks of surgery: Bleeding, Anesthesia Risks, Infection, Need for Future C-Sections, Injury to surrounding structure(s) including bowel and bladder Complications: None - Admit VTE Documentation VTE Present on Admission: Yes VTE Mechan Device Prophylaxis: SCD's VTE Pharm Prophylaxis ordered?: Yes
[2020-02-15] MEDS: Oxytocin 30 units/NS 500 ml 30 UNITS/500 ML IV.SOLN 167 UNITS IV (11:25)
[2020-02-15] MEDS: Acetaminophen 500 MG Tablet 1000 MG PO ×2 (13:01→18:35)
--- NOTE | 2020-02-15 15:16 | NURSING ---
1430 pt pulled out iv attempted to restart three times not successful; supervisor estimator and drafter called to try
[2020-02-15 15:52] LABS: Hematocrit 26.4 % (37-47); Hemoglobin 8.5 g/dL (12.0-15.0); Mean Corp Hgb Conc 32.2 g/dL (32-36); Mean Corpuscular Hgb 29.2 pg (27.0-32.0); Mean Corpuscular Volume 90.7 fL (81-99); Mean Platelet Vol. 10.4 fl (6.2-12.0); Platelet Count 190 K/mm3 (150-450); RBC Distribution Width CV 19.6 % (11.6-14.6); RBC Distribution Width SD 64.4 fl (35.1-43.9); Red Blood Count 2.91 M/mm3 (4.2-5.4); White Blood Count 14.9 K/mm3 (4.4-11.0)
[2020-02-15 16:36] LABS: Pathology Specimen OB SEE PATHOLOGY REPORT
[2020-02-15] MEDS: 0.9% Saline Lock 10 ML Syringe IV ×2 (17:32→21:26)
[2020-02-15] MEDS: Ketorolac 30 MG/ML Syringe IV (17:33)
--- NOTE | 2020-02-15 17:57 | NURSING ---
1730 pt oob to ambulate then to chair; pt gait steady; epidural cath out blue tip intacted
[2020-02-15] MEDS: Enoxaparin 40 MG/0.4 ML Syringe SC (21:25)
[2020-02-15] MEDS: Sertraline 100 MG Tablet PO (21:25)
[2020-02-15] MEDS: Morphine 4 MG/ML Syringe IV (21:26)
[2020-02-16] VITALS (13 sets, daily range): BP systolic 118–150; BP diastolic 67–91; PULSE 89–118; RESP 16–18; TEMP 36.2–37.1; O2SAT 94–99
[2020-02-16] MEDS: 0.9% Saline Lock 10 ML Syringe IV ×5 (00:12→17:59)
[2020-02-16] MEDS: Acetaminophen 500 MG Tablet 1000 MG PO ×4 (00:12→19:00)
[2020-02-16] MEDS: Ketorolac 30 MG/ML Syringe IV ×3 (00:12→11:58)
--- NOTE | 2020-02-16 01:12 | NURSING ---
0045-pulse ox noted down to 87-91% for 15 seconds at a time no apnea noted, however did not pt to be lightly snoring, placed on 1liter o2 via nasal canula. pulse ox up to 95%
[2020-02-16] MEDS: Morphine 4 MG/ML Syringe IV (05:18)
[2020-02-16 05:25] LABS: Hematocrit 22.5 % (37-47); Hemoglobin 7.2 g/dL (12.0-15.0); Mean Corpuscular Hgb 29.3 pg (27.0-32.0); Mean Corpuscular Volume 91.5 fL (81-99); POSITIVE MORPHOLOGY YES; Platelet Count 161 K/mm3 (150-450); RBC Distribution Width CV 19.9 % (11.6-14.6); RBC Distribution Width SD 65.8 fl (35.1-43.9); Red Blood Count 2.46 M/mm3 (4.2-5.4)
[2020-02-16 05:26] LABS: Scan Indicated on CBC? Y/N YES- FLAGS NOTED
[2020-02-16 06:00] LABS: Differential Comment SCANNED
--- NOTE | 2020-02-16 07:53 | NURSING ---
Pt sleeping, snoring, pulse ox on RA 95, but dropped to 88 while RN in room, O2 on per NC at 2L/min. PO now 98%
--- NOTE | 2020-02-16 09:05 | PN.OBGYN_ITS ---
Patient Problems: Active and Suspected Problems (Last Updated 02/13/20 @ 08:53 by Lacie Aleman CNM) Preeclampsia (Acute) Encounter for induction of labor (Acute) Obesity affecting (Acute) Tobacco use during (Acute) Anemia affecting (Acute) Depression with anxiety (Acute) Gestational hypertension (Acute) 37 weeks gestation of (Acute) Subjective: Seen at bedside, complaining of lower abdominal pain. Patient denies any chest pain, shortness of breath or dizziness. She reports ambulating without feeling dizzy or short of breath. Lochia is mild. Urinating without difficulty. Tolerating a regular diet. Breast-feeding is going well. - Physical Exam Vitals/I&O's: Vital Signs Temp Pulse Resp BP Pulse Ox 97.2 F L 89 16 124/67 H 99 02/16/20 07:47 02/16/20 07:47 02/16/20 07:47 02/16/20 07:47 02/16/20 07:47 Oxygen Flow Rate (L/min) 2 Oxygen Delivery Method Nasal Cannula Weight: 98.6 kg Body Mass Index (BMI) 37.3 Intake and Output for Last 24 Hours 02/14/20 02/15/20 02/16/20 23:59 23:59 23:59 Intake Total 9768.02 / 9768.02 4100.44 / 4100.44 300 / 300 Output Total 4800 / 4800 5700 / 5700 500 / 500 Balance 4968.02 / 4968.02 -1599.56 / -1599.56 -200 / -200 General: Alert, Oriented x3 Abdomen: Soft, Non-Distended, - - appropriately tender to palpation. Incision dressing dry and intact. Neurological: Cranial nerves II-XII grossly intact Laboratory Results 02/15/20 15:25: WBC 14.9 H, RBC 2.91 L, Hgb 8.5 L, Hct 26.4 L, MCV 90.7, MCH 29.2, MCHC 32.2, RDW Std Deviation 64.4 H, RDW Coeff of Cora 19.6 H, Plt Count 190, MPV 10.4 02/16/20 05:10: WBC 11.0, RBC 2.46 L, Hgb 7.2 L, Hct 22.5 L, MCV 91.5, MCH 29.3, MCHC 32.0, RDW Std Deviation 65.8 H, RDW Coeff of Cora 19.9 H, Plt Count 161, MPV 10.0, Differential Comment SCANNED Current Medications Acetaminophen (Tylenol) 1,000 mg PO Q6H [facility] Last Admin: 02/16/20 06:42 Dose: 1,000 mg Documented by: Bisacodyl (Dulcolax) 10 mg RECTAL UD PRN PRN Reason: If no BM Enoxaparin Sodium (Lovenox) 40 mg SC DAILY@2200 [facility] Last Admin: 02/15/20 21:25 Dose: 40 mg Documented by: Hydrocortisone (Hytone) 1 applic TOPICAL TID PRN PRN; Protocol PRN Reason: Discomfort Lactated Ringer's () 1,000 mls @ 100 mls/hr IV .Q10H [facility] Last Admin: 02/15/20 23:35 Dose: Not Given Documented by: Naloxone HCl 4 mg/ Dextrose 504 mls @ 0 mls/hr IV .Q0M PRN; Protocol PRN Reason: Respiratory depression Ibuprofen (Motrin) 600 mg PO Q6 [facility] Ketorolac Tromethamine (Toradol (Bkc)) 30 mg IV Q6 [facility] Stop: 02/16/20 12:01 Last Admin: 02/16/20 06:42 Dose: 30 mg Documented by: Methylergonovine Maleate (Methergine) 0.2 mg IM X1 PRN PRN Reason: Uterine Atony Morphine Sulfate () 4 mg IV Q4H PRN PRN PRN Reason: Pain Score 4-5/10 Last Admin: 02/16/20 05:18 Dose: 4 mg Documented by: Naloxone HCl (Narcan) 0.02 mg IV Q1M PRN PRN Reason: RR <10 and pt unresponsive Ondansetron HCl (Zofran) 4 mg IV Q4H PRN PRN PRN Reason: Nausea Oxycodone HCl (Oxyir) 5 - 10 mg PO Q4H PRN PRN PRN Reason: Pain Score 4-10/10 Prochlorperazine Edisylate (Compazine Iv) 10 mg IV Q6H PRN PRN PRN Reason: NAUSEA Senna/Docusate Sodium (Senokot-S, Rachael-Colace) 0 tablet PO DAILY [facility] Sertraline HCl (Zoloft) 100 mg PO DAILY [facility] Last Admin: 02/15/20 21:25 Dose: 100 mg Documented by: Simethicone (Mylicon) 80 mg PO PCHS PRN PRN Reason: Indigestion/stomach pain Sodium Chloride () 5 - 15 ml IV UD PRN PRN Reason: SALINE FLUSH Last Admin: 02/16/20 06:42 Dose: 10 ml Documented by: Medical Necessity - Tobacco Use Smoking Status: Light Smoker (<10/day) Assessment/Plan All Active Problems (Last Updated 02/13/20 @ 08:53 by Lacie Aleman CNM) Preeclampsia (Acute) Encounter for induction of labor (Acute) Obesity affecting (Acute) Tobacco use during (Acute) Anemia affecting (Acute) Depression with anxiety (Acute) Gestational hypertension (Acute) 37 weeks gestation of (Acute) Decreased movement (Acute) 36 weeks gestation of (Acute) POD#1, doing well- acute blood loss anemia 1) recheck CBC at noon 2) start Ferrous sulfate 3) abdominal Binder 4) Ambulation 5) pain mgmt 6) VS stable- BPs wnl.
[2020-02-16] MEDS: Senna/Docusate Sodium 1 Tablet PO (10:43)
[2020-02-16] MEDS: Ferrous Sulfate 325 MG Tablet PO ×2 (10:44→17:58)
[2020-02-16] MEDS: oxyCODONE 5 MG Tablet PO ×3 (10:44→18:59)
--- NOTE | 2020-02-16 11:14 | NURSING ---
Pt has been awake since approx 9am. No further issues with pulse ox below 90%. O2 off at this time. Will continue to monitor
[2020-02-16 12:20] LABS: Hematocrit 22.1 % (37-47); Hemoglobin 7.1 g/dL (12.0-15.0); Mean Corp Hgb Conc 32.1 g/dL (32-36); Mean Corpuscular Hgb 29.2 pg (27.0-32.0); Mean Corpuscular Volume 90.9 fL (81-99); Mean Platelet Vol. 10.2 fl (6.2-12.0); POSITIVE MORPHOLOGY YES; Platelet Count 179 K/mm3 (150-450); RBC Distribution Width CV 19.9 % (11.6-14.6); RBC Distribution Width SD 66.1 fl (35.1-43.9); Red Blood Count 2.43 M/mm3 (4.2-5.4); Scan Indicated on CBC? Y/N YES- FLAGS NOTED; White Blood Count 9.7 K/mm3 (4.4-11.0)
[2020-02-16] MEDS: Ibuprofen 600 MG Tablet PO (17:53)
[2020-02-16] MEDS: Sertraline 100 MG Tablet PO (21:30)
[2020-02-16] MEDS: Enoxaparin 40 MG/0.4 ML Syringe SC (21:30)
[2020-02-17] VITALS (13 sets, daily range): BP systolic 135–167; BP diastolic 63–92; PULSE 97–118; RESP 16–18; TEMP 36.6–37.6; O2SAT 94–99
[2020-02-17] MEDS: Ibuprofen 600 MG Tablet PO ×4 (00:04→17:49)
[2020-02-17] MEDS: Acetaminophen 500 MG Tablet 1000 MG PO ×4 (01:15→20:31)
[2020-02-17] MEDS: oxyCODONE 5 MG Tablet PO ×6 (01:19→22:48)
[2020-02-17] MEDS: Labetalol 100 MG Tablet PO ×2 (10:08→21:59)
[2020-02-17] MEDS: Senna/Docusate Sodium 1 Tablet PO (10:08)
[2020-02-17] MEDS: Ferrous Sulfate 325 MG Tablet PO ×2 (12:51→17:49)
--- NOTE | 2020-02-17 13:10 | PN.OBGYN_ITS ---
Patient Problems: Active and Suspected Problems (Last Updated 02/13/20 @ 08:53 by Lacie Aleman CNM) Preeclampsia (Acute) Encounter for induction of labor (Acute) Obesity affecting (Acute) Tobacco use during (Acute) Anemia affecting (Acute) Depression with anxiety (Acute) Gestational hypertension (Acute) 37 weeks gestation of (Acute) Subjective: Doing well per patient and nursing staff. Ambulating and taking PO without difficulty. voiding and passing flatus. Resting in bed. Lochia normal. - Physical Exam Vitals/I&O's: Vital Signs Temp Pulse Resp BP Pulse Ox 97.8 F 97 18 135/81 H 98 02/17/20 10:00 02/17/20 10:00 02/17/20 10:00 02/17/20 10:00 02/17/20 10:00 Oxygen Flow Rate (L/min) 2 Oxygen Delivery Method Room Air Weight: 217 lb 6.012 oz Body Mass Index (BMI) 37.3 Intake and Output for Last 24 Hours 02/15/20 02/16/20 02/17/20 23:59 23:59 23:59 Intake Total 4100.44 / 4100.44 300 / 300 Output Total 5700 / 5700 500 / 500 Balance -1599.56 / -1599.56 -200 / -200 General: Alert, Oriented x3, Cooperative HEENT: Atraumatic, Normocephalic Neck: Trachea Midline Lungs: Clear to auscultation, Normal air movement, No rhonchi, No wheeze Cardiovascular: Regular rate, Regular Rhythm, No murmurs Abdomen: Bowel Sounds Present, Soft - Fundus 2 below U. Dressing dry and intact. Appropriately tender Extremities: Edema - non pitting BLE Neurological: Deep Tendon Reflexes 2+/4 and Symmetrical Psych/Mental Status: Normal Affect, Appropriate Laboratory Results 02/16/20 12:10: Differential Comment Current Medications Acetaminophen (Tylenol) 1,000 mg PO Q6H [facility] Last Admin: 02/17/20 06:48 Dose: 1,000 mg Documented by: Bisacodyl (Dulcolax) 10 mg RECTAL UD PRN PRN Reason: If no BM Enoxaparin Sodium (Lovenox) 40 mg SC DAILY@2200 [facility] Last Admin: 02/16/20 21:30 Dose: 40 mg Documented by: Ferrous Sulfate (Ferrous Sulfate) 325 mg PO 1200,1700 [facility] Last Admin: 02/17/20 12:51 Dose: 325 mg Documented by: Hydrocortisone (Hytone) 1 applic TOPICAL TID PRN PRN; Protocol PRN Reason: Discomfort Naloxone HCl 4 mg/ Dextrose 504 mls @ 0 mls/hr IV .Q0M PRN; Protocol PRN Reason: Respiratory depression Ibuprofen (Motrin) 600 mg PO Q6 [facility] Last Admin: 02/17/20 12:51 Dose: 600 mg Documented by: Labetalol HCl (Trandate) 100 mg PO BID [facility] Last Admin: 02/17/20 10:08 Dose: 100 mg Documented by: Methylergonovine Maleate (Methergine) 0.2 mg IM X1 PRN PRN Reason: Uterine Atony Morphine Sulfate () 4 mg IV Q4H PRN PRN PRN Reason: Pain Score 4-5/10 Last Admin: 02/16/20 05:18 Dose: 4 mg Documented by: Naloxone HCl (Narcan) 0.02 mg IV Q1M PRN PRN Reason: RR <10 and pt unresponsive Ondansetron HCl (Zofran) 4 mg IV Q4H PRN PRN PRN Reason: Nausea Oxycodone HCl (Oxyir) 5 - 10 mg PO Q4H PRN PRN PRN Reason: Pain Score 4-10/10 Last Admin: 02/17/20 10:08 Dose: 10 mg Documented by: Prochlorperazine Edisylate (Compazine Iv) 10 mg IV Q6H PRN PRN PRN Reason: NAUSEA Senna/Docusate Sodium (Senokot-S, Rachael-Colace) 0 tablet PO DAILY [facility] Last Admin: 02/17/20 10:08 Dose: 1 tablet Documented by: Sertraline HCl (Zoloft) 100 mg PO QHS [facility] Last Admin: 02/16/20 21:30 Dose: 100 mg Documented by: Simethicone (Mylicon) 80 mg PO PCHS PRN PRN Reason: Indigestion/stomach pain Last Admin: 02/16/20 14:52 Dose: 80 mg Documented by: Sodium Chloride () 5 - 15 ml IV UD PRN PRN Reason: SALINE FLUSH Last Admin: 02/16/20 17:59 Dose: 10 ml Documented by: Medical Necessity - Tobacco Use Smoking Status: Light Smoker (<10/day) Assessment/Plan All Active Problems (Last Updated 02/13/20 @ 08:53 by Lacie Aleman CNM) Preeclampsia (Acute) Encounter for induction of labor (Acute) Obesity affecting (Acute) Tobacco use during (Acute) Anemia affecting (Acute) Depression with anxiety (Acute) Gestational hypertension (Acute) 37 weeks gestation of (Acute) Decreased movement (Acute) 36 weeks gestation of (Acute) A:POD #2 Primary LTCS Acute blood loss anemia Gestational HTN P: 1) Routine postoperative care 2) Pain management 3) Hgb 7.1 yesterday, Repeat CBC today, currently Asymptomatic. 4) BP trending up, will start Labetalol 100mg PO BID, consulted and agrees with plan 5) Anticipate discharge home tomorrow.
[2020-02-17 15:06] LABS: Absolute Lymphocyte Count 1.15 X10^3/uL (0.83-4.51); Absolute Neutrophil Count 6.3 X10^3/uL (2.0-7.7); Basophil# 0.01 X10^3/uL; Basophil% 0.1 % (0-1); Eosinophil# 0.08 X10^3/uL; Hematocrit 20.3 % (37-47); Hemoglobin 6.4 g/dL (12.0-15.0); Lymphocyte # 1.15 X10^3/ul (4.0); Lymphocyte % 14.4 % (19-41); Mean Corp Hgb Conc 31.5 g/dL (32-36); Mean Corpuscular Hgb 29.2 pg (27.0-32.0); Mean Corpuscular Volume 92.7 fL (81-99); Monocyte# 0.36 X10^3/uL; Monocyte% 4.5 % (0-10); NRBC Flagged by Analyzer 0 % (0-5); Neutrophil % 79.1 % (47-70); POSITIVE MORPHOLOGY YES; Platelet Count 200 K/mm3 (150-450); RBC Distribution Width CV 19.2 % (11.6-14.6); RBC Distribution Width SD 65.1 fl (35.1-43.9); Red Blood Count 2.19 M/mm3 (4.2-5.4)
[2020-02-17 15:13] LABS: Differential Indicated SCAN CRITERIA MET
[2020-02-17 15:47] LABS: Differential Comment SCANNED
[2020-02-17] MEDS: 0.9% Saline Lock 10 ML Syringe IV (20:12)
[2020-02-17] MEDS: Sertraline 100 MG Tablet PO (21:59)
[2020-02-17] MEDS: Enoxaparin 40 MG/0.4 ML Syringe SC (21:59)
--- NOTE | 2020-02-17 22:55 | NURSING ---
Immediately after transfusion patient's temporal temp 99.4F, follow up of 99.1F oral.
--- NOTE | 2020-02-17 23:20 | NURSING ---
Patient tearful and states it is because of everything happening. Pt now has second unit of PRBC infusing and infant placed under phototherapy via bilicocoon. Emotional support given.
[2020-02-18] VITALS (8 sets, daily range): BP systolic 134–171; BP diastolic 74–89; PULSE 68–99; RESP 16–20; TEMP 36.3–37.3; O2SAT 93–97
[2020-02-18] MEDS: Ibuprofen 600 MG Tablet PO ×4 (01:35→20:41)
[2020-02-18] MEDS: 0.9% Saline Lock 10 ML Syringe IV ×3 (01:59→15:39)
[2020-02-18] MEDS: Acetaminophen 500 MG Tablet 1000 MG PO ×4 (03:07→20:40)
[2020-02-18] MEDS: oxyCODONE 5 MG Tablet PO ×5 (03:12→20:54)
[2020-02-18 05:23] LABS: Absolute Neutrophil Count 6.5 X10^3/uL (2.0-7.7); Basophil# 0.03 X10^3/uL; Basophil% 0.3 % (0-1); Eosinophil# 0.12 X10^3/uL; Eosinophils% 1.4 % (0-5); Hematocrit 23.9 % (37-47); Hemoglobin 7.8 g/dL (12.0-15.0); Lymphocyte % 18.1 % (19-41); Mean Corp Hgb Conc 32.6 g/dL (32-36); Mean Corpuscular Hgb 29.4 pg (27.0-32.0); Mean Corpuscular Volume 90.2 fL (81-99); Mean Platelet Vol. 9.9 fl (6.2-12.0); Monocyte# 0.49 X10^3/uL; Monocyte% 5.5 % (0-10); NRBC Flagged by Analyzer 0 % (0-5); Neutrophil # 6.52 X10^3/uL (2.7-7.7); Neutrophil % 73.6 % (47-70); Platelet Count 236 K/mm3 (150-450); RBC Distribution Width CV 17.6 % (11.6-14.6); RBC Distribution Width SD 58.4 fl (35.1-43.9); Red Blood Count 2.65 M/mm3 (4.2-5.4); White Blood Count 8.9 K/mm3 (4.4-11.0)
--- NOTE | 2020-02-18 05:47 | DCINST_ITS ---
Discharge Diet: No Restrictions Discharge Activity: Return to Normal Activity, May Not Drive - for 2 weeks, May not drive while taking narcotic pain medications., May Shower, May Take a Tub Bath - in 7 days. May resume sexual activity in: 4-6 weeks Lifting Restrictions: 20 pounds Additional Activity Instructions:: Nothing in the vagina for 4-6 weeks. You may return to work/school in 6 weeks. Call your doctor if your incision/area has: Continuous Slow Oozing, Sudden Increased Bleeding, Increased Pain/ Swelling, Increased Redness, Foul Smelling Discharge Call your doctor if you observe: Fever of 101 or Higher, Using more than one pad per hour - for 2 hours Suture Line Care: Avoid Pulling/Pushing, Avoid Pinching/Bending Cleanse incision/area with: Keep Dressing Clean & Dry Additional Instructions: If you experience any of the following, contact your healthcare provider. * Bleeding that soaks a pad every hour for 2 hours * Fever 100.4 or higher * Unrelieved incision or abdominal pain * Swelling, redness, discharge or bleeding from your incision or episiotomy site * Your incision begins to separate * Problems urinating (including inability to urinate or burning while urinating). * Visual changes * Severe headache * Flu-like symptoms * Pain or redness in one of both of your breasts * Pain, warmth, tenderness or swelling in your legs, especially the calf area * Frequent nausea and vomiting * Symptoms of depression or anxiety If you experience any of the following, call 911 or go to the nearest Emergency Room. * Chest pain * Problems breathing * Seizure activity * Partial or complete paralysis of a body part, slurred speech, weakness or drooping of the face, or a sudden inability to walk or hold your balance Allergies/Adverse Reactions: Allergies shalonda Allergy (Verified 02/12/20 13:36) Anaphylaxis gluten Adverse Reaction (Verified 02/12/20 13:36) Diarrhea lactose Adverse Reaction (Verified 02/12/20 13:36) Diarrhea Medications to take at Discharge Folic Acid 0.8 mg PO DAILY 02/04/20 Prenatabs FA 1 tab PO DAILY 02/04/20 Sertraline HCl [Zoloft] 100 mg PO DAILY 02/04/20 Docusate Sodium [Colace] 100 mg PO BID PRN PRN #60 cap 02/18/20 Ferrous Sulfate [Ferosul] 325 mg PO DAILY 60 Days #30 tab 02/18/20 Ibuprofen [Motrin] 600 mg PO Q6H PRN #60 tab 02/18/20 The following prescriptions were given: Docusate Sodium [Colace] 100 mg PO BID PRN PRN #60 cap PRN Reason: Constipation Transmission Status: Pending to [id number] Ferrous Sulfate [Ferosul] 325 mg PO DAILY 60 Days #30 tab Transmission Status: Pending to [id number] Ibuprofen [Motrin] 600 mg PO Q6H PRN #60 tab PRN Reason: Pain Transmission Status: Pending to [id number] Follow-Up: Call to make an appointment with your doctor for an incision check in 1-2 weeks. You will also need a 6 week post- follow up appointment. Test results from this visit will be discussed in further detail at your follow- up appointment, if applicable. Please Follow Up With: Rita Rhoades MD - Call to make an appointment for an incision check in 1-2 [phone] When: You will need a post check in 6 weeks. Primary Care Physician: Ann Sherman DO [Primary Care Provider] -
--- NOTE | 2020-02-18 08:48 | PN.OBGYN_ITS ---
Patient Problems: Active and Suspected Problems (Last Updated 02/13/20 @ 08:53 by Lacie Aleman CNM) Preeclampsia (Acute) Encounter for induction of labor (Acute) Obesity affecting (Acute) Tobacco use during (Acute) Anemia affecting (Acute) Depression with anxiety (Acute) Gestational hypertension (Acute) 37 weeks gestation of (Acute) Subjective: Patient complained of severe pain especially when up and ambulating. Denies shortness of breath, palpitations or lightheadedness with ambulation. Average lochia. Tolerating regular diet. - Physical Exam Vitals/I&O's: Vital Signs Temp Pulse Resp BP Pulse Ox 97.4 F L 91 18 150/85 H 93 02/18/20 07:45 02/18/20 07:45 02/18/20 07:45 02/18/20 07:45 02/18/20 02:58 Oxygen Flow Rate (L/min) 2 Oxygen Delivery Method Room Air Weight: 98.6 kg Body Mass Index (BMI) 37.3 Intake and Output for Last 24 Hours 02/16/20 02/17/20 02/18/20 23:59 23:59 23:59 Intake Total 300 / 300 120 / 120 0 / 0 Output Total 500 / 500 Balance -200 / -200 120 / 120 0 / 0 General: Alert, Cooperative Abdomen: Distended - moderately, firmly, Tender - very, diffusely lower abdomen w/ some guarding Extremities: Edema - 1+ Skin: Incision - bandage is clean dry and intact Laboratory Results 02/17/20 14:55: WBC 8.0, RBC 2.19 L, Hgb 6.4 L, Hct 20.3 L, MCV 92.7, MCH 29.2, MCHC 31.5 L, RDW Std Deviation 65.1 H, RDW Coeff of Cora 19.2 H, Plt Count 200, MPV 10.0, Immature Gran % (Auto) 0.900, Neut % (Auto) 79.1 H, Lymph % (Auto) 14.4 L, Taney % (Auto) 4.5, Eos % (Auto) 1.0, Baso % (Auto) 0.1, Absolute Neuts (auto) 6.3, Absolute Lymphs (auto) 1.15, Nucleated RBC % 0, Differential Comment SCANNED 02/17/20 17:42: Blood Type A POSITIVE, Antibody Screen NEGATIVE, Crossmatch See Detail 02/18/20 05:10: WBC 8.9, RBC 2.65 L, Hgb 7.8 L, Hct 23.9 L, MCV 90.2, MCH 29.4, MCHC 32.6, RDW Std Deviation 58.4 H, RDW Coeff of Cora 17.6 H, Plt Count 236, MPV 9.9, Immature Gran % (Auto) 1.100 H, Neut % (Auto) 73.6 H, Lymph % (Auto) 18.1 L , Taney % (Auto) 5.5, Eos % (Auto) 1.4, Baso % (Auto) 0.3, Absolute Neuts (auto) 6.5, Absolute Lymphs (auto) 1.60, Nucleated RBC % 0 Current Medications Acetaminophen (Tylenol) 1,000 mg PO Q6H [facility] Last Admin: 02/18/20 03:07 Dose: 1,000 mg Documented by: Bisacodyl (Dulcolax) 10 mg RECTAL UD PRN PRN Reason: If no BM Enoxaparin Sodium (Lovenox) 40 mg SC DAILY@2200 [facility] Last Admin: 02/17/20 21:59 Dose: 40 mg Documented by: Ferrous Sulfate (Ferrous Sulfate) 325 mg PO 1200,1700 [facility] Last Admin: 02/17/20 17:49 Dose: 325 mg Documented by: Hydrocortisone (Hytone) 1 applic TOPICAL TID PRN PRN; Protocol PRN Reason: Discomfort Naloxone HCl 4 mg/ Dextrose 504 mls @ 0 mls/hr IV .Q0M PRN; Protocol PRN Reason: Respiratory depression Ibuprofen (Motrin) 600 mg PO Q6 [facility] Last Admin: 02/18/20 07:58 Dose: 600 mg Documented by: Labetalol HCl (Trandate) 100 mg PO BID [facility] Last Admin: 02/17/20 21:59 Dose: 100 mg Documented by: Methylergonovine Maleate (Methergine) 0.2 mg IM X1 PRN PRN Reason: Uterine Atony Morphine Sulfate () 4 mg IV Q4H PRN PRN PRN Reason: Pain Score 4-5/10 Last Admin: 02/16/20 05:18 Dose: 4 mg Documented by: Naloxone HCl (Narcan) 0.02 mg IV Q1M PRN PRN Reason: RR <10 and pt unresponsive Ondansetron HCl (Zofran) 4 mg IV Q4H PRN PRN PRN Reason: Nausea Oxycodone HCl (Oxyir) 5 - 10 mg PO Q4H PRN PRN PRN Reason: Pain Score 4-10/10 Last Admin: 02/18/20 07:45 Dose: 10 mg Documented by: Prochlorperazine Edisylate (Compazine Iv) 10 mg IV Q6H PRN PRN PRN Reason: NAUSEA Senna/Docusate Sodium (Senokot-S, Rachael-Colace) 0 tablet PO DAILY [facility] Last Admin: 02/17/20 10:08 Dose: 1 tablet Documented by: Sertraline HCl (Zoloft) 100 mg PO QHS [facility] Last Admin: 02/17/20 21:59 Dose: 100 mg Documented by: Simethicone (Mylicon) 80 mg PO PCHS PRN PRN Reason: Indigestion/stomach pain Last Admin: 02/16/20 14:52 Dose: 80 mg Documented by: Sodium Chloride () 5 - 15 ml IV UD PRN PRN Reason: SALINE FLUSH Last Admin: 02/18/20 01:59 Dose: 10 ml Documented by: Medical Necessity - Tobacco Use Smoking Status: Light Smoker (<10/day) Assessment/Plan All Active Problems (Last Updated 02/13/20 @ 08:53 by Lacie Aleman CNM) Preeclampsia (Acute) Encounter for induction of labor (Acute) Obesity affecting (Acute) Tobacco use during (Acute) Anemia affecting (Acute) Depression with anxiety (Acute) Gestational hypertension (Acute) 37 weeks gestation of (Acute) Decreased movement (Acute) 36 weeks gestation of (Acute) Stop day #3 status post primary section with calculated blood loss total since delivery of only 1800 cc which is consistent with hemorrhage. Suspect she has trended down from intraperitoneal versus sub-rectus fascia bleed. Patient has significant pain. Hemoglobin did not respond as well as would be expected for 2 units of blood transfused yesterday. She seems hemodynamically stable so we will repeat CBC at lunch and if is stable will consider IV iron. We will get a CAT scan to help visualize where hematoma is. Patient has significant pain may need surgical exploration to help control pain and evacuate the hematoma. Will reevaluate after blood work and CAT scan. Discussed this finding with the patient. Tito is under bili lights and breast-feeding and doing well.
--- NOTE | 2020-02-18 08:55 | CT_ITS ---
STUDY: CT ABDOMEN AND PELVIS WITH CONTRAST REASON FOR EXAM: Female, 29 years old. R/O BLEEDING S/P RADIATION DOSAGE (If Supplied By Facility): CTDIvol = ( 16.06 ) mGy, DLP = ( 1263.84 ) mGycm TECHNIQUE: Transaxial images were obtained from the dome of the diaphragm to the symphysis pubis without oral contrast. IV 100mL Isovue-300 was administered. Sagittal and coronal images were reconstructed. Individualized dose optimization techniques were used for this CT. COMPARISON: None. FINDINGS: Mild degree of increased markings at the lung bases suggestive of atelectasis and decrease in ventilatory effort. The visualized portions of the heart are within normal limits. Normal liver. Normal gallbladder and extrahepatic biliary system. Borderline splenomegaly. Normal pancreas. Normal bilateral adrenal glands. Normal right kidney. Normal left kidney. Horseshoe kidney. Normal visualized stomach. Normal small intestine. Normal colon. The appendix is visualized and appears normal. Normal abdominal aorta. Normal inferior vena cava. Normal retroperitoneum. Normal urinary bladder. Enlarged uterus in keeping with the recent post and gravid uterus. Increased markings are seen in the peritoneal fat anterior and adjacent to the uterus in keeping with the recent section. There is evidence of a 13.7 cm x 3.9 cm hematoma involving the anterior lower abdominal wall at the site of the recent section. Small amount of air is also seen within the abdominal wall and compatible with recent surgical procedure. There is increased vascularity seen in the fundal portion of the uterus. Normal osseous structures. CT/Abdomen/Pelvis WITH Contrast IMPRESSION: Post section changes seen in the lower anterior abdominal wall in keeping with a post surgical hematoma with increased markings in the surrounding pelvic fat. Electronically Signed: Ronal Moya, at 9:54 EDT , Service support ,
[2020-02-18] MEDS: Labetalol 100 MG Tablet PO ×2 (09:43→11:16)
[2020-02-18] MEDS: Senna/Docusate Sodium 1 Tablet PO (09:43)
[2020-02-18] MEDS: Ferrous Sulfate 325 MG Tablet PO ×2 (12:11→17:27)
[2020-02-18] MEDS: Prenatal Vits Tablet 1 TABLET PO (12:11)
[2020-02-18 12:38] LABS: Hematocrit 25.3 % (37-47); Hemoglobin 8.2 g/dL (12.0-15.0); Mean Corp Hgb Conc 32.4 g/dL (32-36); Mean Corpuscular Hgb 29.1 pg (27.0-32.0); Mean Corpuscular Volume 89.7 fL (81-99); Mean Platelet Vol. 9.5 fl (6.2-12.0); Platelet Count 248 K/mm3 (150-450); RBC Distribution Width CV 17.8 % (11.6-14.6); RBC Distribution Width SD 58.4 fl (35.1-43.9); Red Blood Count 2.82 M/mm3 (4.2-5.4); White Blood Count 8.7 K/mm3 (4.4-11.0)
--- NOTE | 2020-02-18 12:56 | PCM.PN.BLA ---
Progress Note C/o of a lot of pain, tuan. w/ ambulation. Postop intraperitoneal hematoma on CT scan- reviewed case w/ Dr. Nino. In our clinical opinion right now do not recommend drainage or take back to OR for exploration as seems stable. H&H stable from this am. Ok for regular diet. Will keep overnight to rechek CBC in am, also to monitor BP as we had to increase labetalol today. Reeval for d/c in am. STROKE Vital Signs/Narrative: Vital Signs Pulse Resp BP 02/18/20 11:20 84 16 157/83 H 02/18/20 09:45 88 20 H 171/87 H
[2020-02-18 13:12] LABS: Vitamin B12 1178 pg/mL (211-911)
[2020-02-18 13:29] LABS: Anion Gap 8 (5-15); BUN 6 mg/dL (7-18); BUN/Creat Ratio 8.9 RATIO (10-20); Calcium,Total 9.1 mg/dL (8.5-10.1); Chloride 108 mmol/L (98-107); Creatinine, Serum 0.68 mg/dL (0.55-1.02); EST Glomerular Filtration Rate 108 mL/min (>60); Est Glom Filt Rate - Afr Amer 130 mL/min (>60); Estimated Creatinine Clearance 103.51 ml/min; Ferritin 484 ng/mL (8-252); Glucose 82 mg/dL (74-106); Iron Binding Capacity,Total 213 ug/dL (250-450); Sodium Level 139 mmol/L (136-145)
--- NOTE | 2020-02-18 15:23 | NURSING ---
1454 (Late Entry) pt states she does not want to take the benadryl because she wants to be awake to continue feeding the baby frequently. pt states she received several iron transfusions during and never received benadryl and did not have any reaction
[2020-02-18] MEDS: Labetalol 200 MG Tablet PO (22:17)
[2020-02-18] MEDS: Enoxaparin 40 MG/0.4 ML Syringe SC (22:17)
[2020-02-18] MEDS: Sertraline 100 MG Tablet 150 MG PO (22:17)
[2020-02-19 01:48] VITALS: BP 146/87; PULSE 97; RESP 16; TEMP 36.6
[2020-02-19] MEDS: oxyCODONE 5 MG Tablet PO ×3 (01:55→12:14)
[2020-02-19] MEDS: Ibuprofen 600 MG Tablet PO ×2 (03:02→09:07)
[2020-02-19] MEDS: Acetaminophen 500 MG Tablet 1000 MG PO ×2 (03:08→09:45)
[2020-02-19 04:59] VITALS: BP 129/69
[2020-02-19 06:20] LABS: Hematocrit 23.8 % (37-47); Hemoglobin 7.9 g/dL (12.0-15.0); Mean Corp Hgb Conc 33.2 g/dL (32-36); Mean Corpuscular Hgb 29.9 pg (27.0-32.0); Mean Corpuscular Volume 90.2 fL (81-99); Mean Platelet Vol. 9.5 fl (6.2-12.0); Platelet Count 238 K/mm3 (150-450); RBC Distribution Width CV 17.6 % (11.6-14.6); RBC Distribution Width SD 57.9 fl (35.1-43.9); Red Blood Count 2.64 M/mm3 (4.2-5.4); White Blood Count 8.3 K/mm3 (4.4-11.0)
--- NOTE | 2020-02-19 07:40 | NURSING ---
late entry: support person spoke w/ privately earlier in shift having concerns w/ mother of baby's care for infant & acting more emotional than has ever seen pt. tearful stating she is having doubts not doing a good job being a mom emotional support and care discussed with pt. and fob. by end of this RN's shift both working together to change diapers, feed, and swaddle baby, charge nurse aware, social service consult placed
[2020-02-19 08:00] VITALS: BP 138/93; PULSE 87; RESP 18; TEMP 36.4; O2SAT 98
--- NOTE | 2020-02-19 08:29 | PCM.PN.OB ---
Patient Problems: Active and Suspected Problems (Last Updated 02/13/20 @ 08:53 by Lacie Aleman CNM) Preeclampsia (Acute) Encounter for induction of labor (Acute) Obesity affecting (Acute) Tobacco use during (Acute) Anemia affecting (Acute) Depression with anxiety (Acute) Gestational hypertension (Acute) 37 weeks gestation of (Acute) Subjective: Patient is doing well today. Denies headache, vision changes, upper abdominal pain. She is ambulating and voiding without difficulty. Tolerating regular diet without nausea or vomiting. She denies lightheadedness or dizziness with ambulation. No chest pain, shortness of breath, leg pain. Lochia normal. She feels ready to go home today. Pain is the same but is controlled. - Physical Exam Vitals/I&O's: Vital Signs Temp Pulse Resp BP Pulse Ox 98 F 97 16 129/69 H 93 02/19/20 01:48 02/19/20 01:48 02/19/20 01:48 02/19/20 04:59 02/18/20 02:58 Oxygen Flow Rate (L/min) 2 Oxygen Delivery Method Room Air Weight: 217 lb 6.012 oz Body Mass Index (BMI) 37.3 Intake and Output for Last 24 Hours 02/17/20 02/18/20 02/19/20 23:59 23:59 23:59 Intake Total 120 / 120 110 / 110 Balance 120 / 120 110 / 110 General: Alert, No apparent distress HEENT: Atraumatic Abdomen: Soft, Non-Distended, - - FF@U, diffusely tender to palpation, no rebounding, no gaurding, no rigidity Extremities: No edema, No Calf Tenderness Neurological: Neuro grossly intact Psych/Mental Status: Normal Affect, Appropriate Laboratory Results 02/18/20 12:15: WBC 8.7, RBC 2.82 L, Hgb 8.2 L, Hct 25.3 L, MCV 89.7, MCH 29.1, MCHC 32.4, RDW Std Deviation 58.4 H, RDW Coeff of Cora 17.8 H, Plt Count 248, MPV 9.5 02/18/20 12:15: Vitamin B12 1178 H 02/18/20 12:15: Sodium 139, Potassium 4.0, Chloride 108 H, Carbon Dioxide 23.0, Anion Gap 8, BUN 6 L, Creatinine 0.68, Estim Creat Clear Calc 103.51, Est GFR (MDRD) Af Amer 130, Est GFR (MDRD) Non-Af 108, BUN/Creatinine Ratio 8.9 L, Glucose 82, Calcium 9.1, TIBC 213 L, Ferritin 484 H 02/19/20 06:00: WBC 8.3, RBC 2.64 L, Hgb 7.9 L, Hct 23.8 L, MCV 90.2, MCH 29.9, MCHC 33.2, RDW Std Deviation 57.9 H, RDW Coeff of Cora 17.6 H, Plt Count 238, MPV 9.5 Current Medications Acetaminophen (Tylenol) 1,000 mg PO Q6H [facility] Last Admin: 02/19/20 03:08 Dose: 1,000 mg Documented by: Bisacodyl (Dulcolax) 10 mg RECTAL UD PRN PRN Reason: If no BM Enoxaparin Sodium (Lovenox) 40 mg SC DAILY@2200 [facility] Last Admin: 02/18/20 22:17 Dose: 40 mg Documented by: Ferrous Sulfate (Ferrous Sulfate) 325 mg PO 1200,1700 [facility] Last Admin: 02/18/20 17:27 Dose: 325 mg Documented by: Hydrocortisone (Hytone) 1 applic TOPICAL TID PRN PRN; Protocol PRN Reason: Discomfort Naloxone HCl 4 mg/ Dextrose 504 mls @ 0 mls/hr IV .Q0M PRN; Protocol PRN Reason: Respiratory depression Ibuprofen (Motrin) 600 mg PO Q6 [facility] Last Admin: 02/19/20 03:02 Dose: 600 mg Documented by: Labetalol HCl (Trandate) 200 mg PO BID [facility] Last Admin: 02/18/20 22:17 Dose: 200 mg Documented by: Methylergonovine Maleate (Methergine) 0.2 mg IM X1 PRN PRN Reason: Uterine Atony Morphine Sulfate () 4 mg IV Q4H PRN PRN PRN Reason: Pain Score 4-5/10 Last Admin: 02/16/20 05:18 Dose: 4 mg Documented by: Naloxone HCl (Narcan) 0.02 mg IV Q1M PRN PRN Reason: RR <10 and pt unresponsive Ondansetron HCl (Zofran) 4 mg IV Q4H PRN PRN PRN Reason: Nausea Oxycodone HCl (Oxyir) 5 - 10 mg PO Q4H PRN PRN PRN Reason: Pain Score 4-10/10 Last Admin: 02/19/20 07:52 Dose: 10 mg Documented by: Multivit/Folic Acid/Iron (Prenatabs Fa) 1 tablet PO DAILY@1200 [facility] Last Admin: 02/18/20 12:11 Dose: 1 tablet Documented by: Prochlorperazine Edisylate (Compazine Iv) 10 mg IV Q6H PRN PRN PRN Reason: NAUSEA Senna/Docusate Sodium (Senokot-S, Rachael-Colace) 0 tablet PO DAILY [facility] Last Admin: 02/18/20 09:43 Dose: 1 tablet Documented by: Sertraline HCl (Zoloft) 150 mg PO QHS [facility] Last Admin: 02/18/20 22:17 Dose: 150 mg Documented by: Simethicone (Mylicon) 80 mg PO PCHS PRN PRN Reason: Indigestion/stomach pain Last Admin: 02/16/20 14:52 Dose: 80 mg Documented by: Sodium Chloride () 5 - 15 ml IV UD PRN PRN Reason: SALINE FLUSH Last Admin: 02/18/20 15:39 Dose: 10 ml Documented by: Medical Necessity - Tobacco Use Smoking Status: Light Smoker (<10/day) Assessment/Plan All Active Problems (Last Updated 02/13/20 @ 08:53 by Lacie Aleman CNM) Preeclampsia (Acute) Encounter for induction of labor (Acute) Obesity affecting (Acute) Tobacco use during (Acute) Anemia affecting (Acute) Depression with anxiety (Acute) Gestational hypertension (Acute) 37 weeks gestation of (Acute) Decreased movement (Acute) 36 weeks gestation of (Acute) Patient is postop from a section - Acute blood loss anemia and intrabdominal hematoma: Abdominal exam is not acute this morning. Pt denies symptoms of anemia. Hgb stable at 7.9. Discussed pain control with hematoma and risk of infection. Reviewed reasons to call- fevers, chills, worsening or severe pain, symptoms of anemia - Preeclampsia: BP's better controlled on Labetalol 200 mg BID. Continue to monitor BP's this morning and early afternoon. If BP's still controlled, ok for discharge after lunch. No symptoms of pree this AM. Discussed to call with any pree symptoms - Pain controlled - HDS - Dispo: Pt desires to go home today. Discussed need for incision check and BP check on Monday. Discharge instructions reviewed
--- NOTE | 2020-02-19 08:44 | DCINST_ITS ---
Discharge Diet: No Restrictions Discharge Activity: Return to Normal Activity, May Not Drive - for 2 weeks, May not drive while taking narcotic pain medications., May Shower, May Take a Tub Bath - in 7 days. May resume sexual activity in: 4-6 weeks Additional Activity Instructions:: Nothing in the vagina for 4-6 weeks. You may return to work/school in 6 weeks. Call your doctor if your incision/area has: Continuous Slow Oozing, Sudden Increased Bleeding, Increased Pain/ Swelling, Increased Redness, Foul Smelling Discharge Call your doctor if you observe: Fever of 101 or Higher, Using more than one pad per hour - for 2 hours Suture Line Care: Avoid Pulling/Pushing, Avoid Pinching/Bending Cleanse incision/area with: Keep Dressing Clean & Dry Additional Instructions: If you experience any of the following, contact your healthcare provider. * Bleeding that soaks a pad every hour for 2 hours * Fever 100.4 or higher * Unrelieved incision or abdominal pain * Swelling, redness, discharge or bleeding from your incision or episiotomy site * Your incision begins to separate * Problems urinating (including inability to urinate or burning while urinating). * Visual changes * Severe headache * Flu-like symptoms * Pain or redness in one of both of your breasts * Pain, warmth, tenderness or swelling in your legs, especially the calf area * Frequent nausea and vomiting * Symptoms of depression or anxiety If you experience any of the following, call 911 or go to the nearest Emergency Room. * Chest pain * Problems breathing * Seizure activity * Partial or complete paralysis of a body part, slurred speech, weakness or drooping of the face, or a sudden inability to walk or hold your balance Allergies/Adverse Reactions: Allergies shalonda Allergy (Verified 02/12/20 13:36) Anaphylaxis gluten Adverse Reaction (Verified 02/12/20 13:36) Diarrhea lactose Adverse Reaction (Verified 02/12/20 13:36) Diarrhea Medications to take at Discharge Folic Acid 0.8 mg PO DAILY 02/04/20 Prenatabs FA 1 tab PO DAILY 02/04/20 Sertraline HCl [Zoloft] 100 mg PO DAILY 02/04/20 Docusate Sodium [Colace] 100 mg PO BID PRN PRN #60 cap 02/18/20 Ferrous Sulfate [Ferosul] 325 mg PO DAILY 60 Days #30 tab 02/18/20 Ibuprofen [Motrin] 600 mg PO Q6H PRN #60 tab 02/18/20 Labetalol [Trandate (Beta Vito)] 200 mg PO BID #40 tab 02/19/20 Oxycodone HCl/Acetaminophen [Percocet 5/325] 1 tablet PO Q6H PRN PRN 7 Days #28 tablet 02/19/20 The following prescriptions were given: Docusate Sodium [Colace] 100 mg PO BID PRN PRN #60 cap PRN Reason: Constipation Transmission Status: Received by [id number] Ferrous Sulfate [Ferosul] 325 mg PO DAILY 60 Days #30 tab Transmission Status: Received by [id number] Ibuprofen [Motrin] 600 mg PO Q6H PRN #60 tab PRN Reason: Pain Transmission Status: Received by [id number] Oxycodone HCl/Acetaminophen [Percocet 5/325] 1 tablet PO Q6H PRN PRN 7 Days #28 tablet PRN Reason: Pain Score 6-10/10 Transmission Status: Received by [id number] Labetalol [Trandate (Beta Vito)] 200 mg PO BID #40 tab Transmission Status: Pending to [id number] Follow-Up: Call to make an appointment with your doctor for an incision check in 1-2 weeks. You will also need a 6 week post- follow up appointment. Test results from this visit will be discussed in further detail at your follow- up appointment, if applicable. When: 1 week for BP check and incision check and 6 weeks Primary Care Physician: Ann Sherman DO [Primary Care Provider] -
[2020-02-19] MEDS: Prenatal Vits Tablet 1 TABLET PO (10:40)
[2020-02-19] MEDS: Senna/Docusate Sodium 1 Tablet PO (10:40)
[2020-02-19] MEDS: Labetalol 200 MG Tablet PO (10:40)
[2020-02-19 12:00] VITALS: BP 147/90; PULSE 83; RESP 18; TEMP 36.6; O2SAT 98
[2020-02-19] MEDS: Ferrous Sulfate 325 MG Tablet PO (12:14)
== END 2020-02-19 14:25 | disposition home or self-care (01) | DRG 787 ==
PROVIDERS: Advanced Practice Midwife; Obstetrics & Gynecology; Admitting Provider Obstetrics & Gynecology; PCP Family Medicine; Visit Provider Obstetrics & Gynecology
DX: O75.81 Maternal exhaustion complicating labor and delivery (principal); D62 Acute posthemorrhagic anemia; Z37.0 Single live birth; O72.1 Other immediate postpartum hemorrhage; E66.9 Obesity, unspecified; O99.214 Obesity complicating childbirth; F17.200 Nicotine dependence, unspecified, uncomplicated; O99.334 Smoking (tobacco) complicating childbirth; F41.8 Other specified anxiety disorders; O99.344 Other mental disorders complicating childbirth; Z3A.37 37 weeks gestation of pregnancy; O14.04 Mild to moderate pre-eclampsia, complicating childbirth; O99.02 Anemia complicating childbirth
CPT/HCPCS: 59025; 59050; 74177; 76815; 80048; 80053; 80076; 82565; 82570; 82607; 82728; 83550; 84156; 84550; 85025; 85027; 86850; 86900; 86901; 86920; 86922; 88307; 99218; 99251; J1756; J7120; P9016; Q9967; A4216; G0378; G0463; J2405